=== PATIENT | female | born 1980 | race Caucasian/White ===

== ENCOUNTER 2021-04-23 03:16 | Inpatient (IN) | payer OTHER, SELFPAY ==
[2021-04-23 03:58] VITALS: BMI 33.3
[2021-04-23 04:35] LABS: Fetal Membranes Rupture No Membranes Rupture (No Rupture)
[2021-04-23] MEDS ORDERED: Penicillin G Potassium 5 MILL.UNITS VIAL ONE (04:53)
[2021-04-23] MEDS ORDERED: Ondansetron PF 4 MG/2 ML Vial IVP PRN (05:30)
[2021-04-23] MEDS ORDERED: NS w/ Oxytocin 30 units 500 ML IVPB SCH (05:30)
[2021-04-23] MEDS ORDERED: Acetaminophen 500 MG TAB PO PRN (05:30)
[2021-04-23] MEDS ORDERED: Misoprostol 200 MCG TAB RC PRN (05:30)
[2021-04-23] MEDS ORDERED: hydrALAZINE 20 MG/ML VIAL SLOW IVP PRN ×2 (05:30→10:07)
[2021-04-23] MEDS ORDERED: Penicillin G Potassium 5 MILL.UNITS in Sodium Chloride 0.9% 100 ML IVPB SCH (05:30)
[2021-04-23] MEDS ORDERED: Lactated Ringer's 1,000 ML IV SCH ×2 (05:30)
[2021-04-23] MEDS ORDERED: NS w/ Oxytocin 30 units 500 ML IV SCH ×2 (05:30)
[2021-04-23] MEDS ORDERED: Methylergonovine 0.2 MG/ML VIAL IM PRN (05:30)
[2021-04-23] MEDS ORDERED: Carboprost 250 MCG/ML AMP IM PRN (05:30)
[2021-04-23] MEDS ORDERED: Lidocaine 1% (PF) 30 ML VIAL SC PRN (05:30)
[2021-04-23] MEDS ORDERED: Promethazine HCl 25 MG/ML VIAL IM PRN (05:30)
[2021-04-23] MEDS ORDERED: Ibuprofen 800 MG TAB PO PRN (05:30)
[2021-04-23] MEDS ORDERED: Butorphanol Tartrate 1 MG/ML VIAL SLOW IVP PRN (05:30)
[2021-04-23 05:50] LABS: Hemoglobin 12.1 g/dL (12.0-15.5); Mean Corpuscular HGB CONC 31.9 g/dL (32.0-36.0); Mean Corpuscular Hemoglobin 26.6 pg (27.0-33.0); Mean Corpuscular Volume 83.3 fl (81.6-98.3); Platelet Count 199 10x3/uL (150-450); RBC Distribution Width 14.8 % (11.5-14.5); Red Blood Cell (RBC) Count 4.55 10x6/uL (3.90-5.03); White Blood Cell (WBC) Count 9.6 10x3/uL (3.5-10.5)
[2021-04-23 06:20] LABS: Syphilis Antibody Nonreactive (Nonreactive); Syphilis Antibody Index 0.21 S/CO (<1.00 Non-Reactive)
[2021-04-23 06:27] LABS: HIV (1/2) Antibody/Antigen Non-Reactive (NonReactive); Hep B Surf Ag Non-Reactive S/CO (NonReactive)
[2021-04-23 06:29] LABS: HBSAg Index 0.21 S/CO (0-0.99)
[2021-04-23 07:16] LABS: SARS-CoV-2 NAA Rapid Test Not Detected (NotDetected)
[2021-04-23] MEDS ORDERED: Penicillin G 2.5 MILL.units 50 ML IVPB SCH (09:00)
[2021-04-23] MEDS ORDERED: Preparation H Ointment 28 GM TUBE PR PRN (10:07)
[2021-04-23] MEDS ORDERED: Bisacodyl 10 MG SUPP PR PRN (10:07)
[2021-04-23] MEDS ORDERED: HYDROcodone/Acetaminophen 5/325 mg Tablet PO PRN (10:07)
[2021-04-23] MEDS ORDERED: Boostrix 0.5 ML (Tdap) VIAL IM ONE (10:07)
[2021-04-23] MEDS ORDERED: Milk Of Magnesia 30 ML UDCUP PO PRN (10:07)
[2021-04-23] MEDS ORDERED: Docusate Calcium (SURFAK) 240 MG CAP PO SCH (10:15)
[2021-04-23] MEDS ORDERED: Fluconazole 100 MG TAB PO SCH (10:30)
[2021-04-23] MEDS ORDERED: Ferrous Sulfate 325 MG TAB PO SCH (10:30)
[2021-04-23] MEDS ORDERED: metroNIDAZOLE 500 MG TAB PO SCH (10:30)
[2021-04-23] MEDS: metroNIDAZOLE 500 MG TAB PO SCH ×2 (13:10→21:09)
[2021-04-23] MEDS: Ibuprofen 800 MG TAB PO SCH ×2 (14:21→21:09)
[2021-04-23] MEDS: Ferrous Sulfate 325 MG TAB PO SCH (15:58)
[2021-04-23] MEDS: Docusate Calcium (SURFAK) 240 MG CAP PO SCH (21:09)
[2021-04-24] MEDS: Ibuprofen 800 MG TAB PO SCH (05:50)
[2021-04-24 07:51] VITALS: BP 117/63; TEMP 98.3
[2021-04-24] MEDS: Docusate Calcium (SURFAK) 240 MG CAP PO SCH (08:13)
[2021-04-24] MEDS: Ferrous Sulfate 325 MG TAB PO SCH (08:14)
[2021-04-24] MEDS ORDERED: Fluconazole 100 MG TAB PO SCH (09:00)
[2021-04-24] MEDS: metroNIDAZOLE 500 MG TAB PO SCH (10:45)
== END 2021-04-24 14:00 | disposition home or self-care (01) | DRG 807 ==
LOC: CSHLD/OP 03:16 → CSHLD 03:17 → CSHPP 11:40
PROVIDERS: ADMIT Family Medicine; ATTEND Family Medicine
PROC: 10E0XZZ Delivery of Products of Conception, External Approach (ICD-10-PCS; principal; 2021-04-23)
PROC: 0HQ9XZZ Repair Perineum Skin, External Approach (ICD-10-PCS; 2021-04-23)
DX: O99.824 Streptococcus B carrier state complicating childbirth (principal); Z37.0 Single live birth; Z3A.41 41 weeks gestation of pregnancy; Z20.822 Contact with and (suspected) exposure to COVID-19; O48.0 Post-term pregnancy; O24.425 Gestational diabetes mellitus in childbirth, controlled by oral hypoglycemic drugs; O69.81X0 Labor and delivery complicated by cord around neck, without compression, not applicable or unspecified; O66.0 Obstructed labor due to shoulder dystocia; O70.0 First degree perineal laceration during delivery
CPT/HCPCS: 84112; 85027; 86762; 86780; 86850; 86900; 86901; 87340; 87389; 87480; 87510; 87660; 99285; J2540; J2590; J3490; J7120; U0002